=== PATIENT | female | born 1950 | race Caucasian/White ===

== ENCOUNTER 2018-03-08 12:26 | Inpatient (IN) ==
--- NOTE | 2018-03-07 23:20 | Discharge Summary ---
<Dori Cordon - Last Filed: 03/07/18 23:14> Date of Encounter: 03/07/18 - Discharge Diagnosis (1) Arthritis of left hip Priority: Primary Status: Acute (2) Status post total hip replacement, left Priority: Primary Status: Acute (3) HTN (hypertension) Priority: Secondary Status: Acute Qualifiers: Hypertension type: essential hypertension Qualified Code(s): I10 - Essential (primary) hypertension (4) DMII (diabetes mellitus, type 2) Priority: Secondary Status: Chronic Qualifiers: Diabetes mellitus nursing home insulin use: unspecified nursing home insulin use status Diabetes mellitus complication status: with unspecified complications Qualified Code(s): E11.8 - Type 2 diabetes mellitus with unspecified complications (5) History of TIA (transient ischemic attack) Priority: Secondary Status: Chronic - Hospital Course Hospital course: Ms. Weir is a 67 year old female - Time Spent with Patient Total time spent providing and/or coordinating discharge services: - Discharge Medications Home Medications: Aspirin Enteric Coated [Aspirin EC] 325 mg PO BID #20 tablet. 03/07/18 [Rx] Enoxaparin [Lovenox] 30 mg SQ Q12HR #20 syr 03/07/18 [Rx] OxyCODONE Immed Rel [Roxicodone 5 MG] 5 mg PO Q6HR PRN 7 Days #28 tablet [Rx] Atenolol/Chlorthalidone [Tenoretic 50 Tablet] 1 tab PO DAILY 03/08/18 [History] Atorvastatin [Lipitor] 40 mg PO HS 03/08/18 [History] Cholecalciferol (D-3) [Vitamin D] 1,000 unit PO DAILY 03/08/18 [History] Clopidogrel [Plavix] 75 mg PO DAILY 03/08/18 [History] Cyanocobalamin (Vitamin B-12) [Vitamin B-12] 1,000 mcg PO DAILY 03/08/18 [ History] Gabapentin [Neurontin] 100 mg PO HS 03/08/18 [History] Multivits,Ca,Minerals/Iron/FA [Women's Daily Caplet] 1 tab PO DAILY 03/08/18 [ History] glipiZIDE [Glucotrol] 5 mg PO DAILY 03/08/18 [History] Allergies/Adverse Reactions: 3 Allergy/AdvReac Type Severity Reaction Status Date / Time aspirin AdvReac Hives Verified 03/08/18 13:29 hydrocodone AdvReac See Verified 03/08/18 13:29 Comments Primary care physician: Kari Martinez, - Patient Status Disposition: Home Health Service Condition: Good - Discharge Instructions Follow Up With: Kari Martinez MD [Primary Care Provider] - <IsaelTavon Alexander - Last Filed: 03/10/18 06:16> Orders not resulted at time of discharge: Pending orders 03/08/18 00:01 XR hip complete LT [XR] Routine H/H [Hemoglobin and Hematocrit] [HEME] Routine Date of Encounter: 03/10/18 Time of Encounter: 06:15 - Discharge Diagnosis (1) Arthritis of left hip Priority: Primary Status: Chronic (2) Status post total hip replacement, left Priority: Primary Status: Acute (3) HTN (hypertension) Priority: Secondary Status: Chronic Qualifiers: Hypertension type: essential hypertension Qualified Code(s): I10 - Essential (primary) hypertension (4) DMII (diabetes mellitus, type 2) Priority: Secondary Status: Chronic Qualifiers: Diabetes mellitus nursing home insulin use: unspecified terminal gauger insulin use status Diabetes mellitus complication status: with unspecified complications Qualified Code(s): E11.8 - Type 2 diabetes mellitus with unspecified complications (5) History of TIA (transient ischemic attack) Priority: Secondary Status: Chronic (6) Acute blood loss anemia Priority: Primary Status: Acute - Hospital Course Hospital course: Ms. Weir is a 67 year old female Status post total hip replacement. Patient with acute blood loss anemia hemoglobin dropped to 8.1 transfuse 2 units . The patient had an uneventful postoperative course. They received antibiotics and physical therapy and were discharged in stable condition. There will follow -up in the office in 2 weeks. - Time Spent with Patient Total time spent providing and/or coordinating discharge services: Primary care physician: Kari Martinez, - Patient Status Functional capacity at discharge: uses cane/walker Overall status at discharge: patient is progressing back to baseline
--- NOTE | 2018-03-08 11:20 | Anesthesia Evaluation PreOp ---
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 03/07/18 [Rx] Enoxaparin [Lovenox] 30 mg SQ Q12HR #20 syr 03/07/18 [Rx] OxyCODONE Immed Rel [Roxicodone 5 MG] 5 mg PO Q6HR PRN 7 Days #28 tablet [Rx] Atenolol/Chlorthalidone [Tenoretic 50 Tablet] 1 tab PO DAILY 03/08/18 [History] Atorvastatin [Lipitor] 40 mg PO HS 03/08/18 [History] Cholecalciferol (D-3) [Vitamin D] 1,000 unit PO DAILY 03/08/18 [History] Clopidogrel [Plavix] 75 mg PO DAILY 03/08/18 [History] Cyanocobalamin (Vitamin B-12) [Vitamin B-12] 1,000 mcg PO DAILY 03/08/18 [ History] Gabapentin [Neurontin] 100 mg PO HS 03/08/18 [History] Multivits,Ca,Minerals/Iron/FA [Women's Daily Caplet] 1 tab PO DAILY 03/08/18 [ History] glipiZIDE [Glucotrol] 5 mg PO DAILY 03/08/18 [History] 3 Allergy/AdvReac Type Severity Reaction Status Date / Time aspirin AdvReac Hives Verified 03/08/18 13:29 hydrocodone AdvReac See Verified 03/08/18 13:29 Comments - Meds/Allergy Pre-op Review Medications Reviewed: Yes Allergies Reviewed: Yes Beta Blockers on Current Med List: Yes If Beta Blockers taken, Date/Time (Last Dose taken): 03/08/2018 at 0800 Anesthesia Results - Labs Laboratory Tests 03/01/18 03/01/18 03/01/18 11:56 11:56 11:56 WBC 6.2 Hgb 13.4 Hct 39.4 Plt Count 267 PT 11.0 INR 1.0 APTT 26.0 Sodium 135 L Potassium 3.4 L BUN 19 Creatinine 0.87 - Imaging EKG: report reviewed (03/01/2018 SINUS RHYTHM BORDERLINE LEFT AXIS DEVIATION MINIMAL VOLTAGE CRITERIA FOR LVH, CONSIDER NORMAL VARIANT NONSPECIFIC T-WAVE ABNORMALITY) Anesthesia Exam O2 Sat Height 1.57 m Height 1.57 m Weight 64.41 kg Weight 64.41 kg O2 Sat by Pulse Oximetry 98 Vital Signs Temp Pulse Resp BP Pulse Ox 98.2 F 66 18 131/72 98 03/08/18 12:57 03/08/18 12:57 03/08/18 12:57 03/08/18 12:57 03/08/18 12:57 Blood Glucose* 141 Height: 5'2'' Weight: 142 lbs NPO (# of Hours): 8 Pain Scale: 0 (at rest) Pain Scale Used: Numeric (1 - 10) - HEENT Pupil (Motor): EOMI Mallampati: III Teeth: Normal Denture Type: Lower: Partial Oral Opening: Greater than 3 - OUTDOOR ADVENTURE LEADER LOC: Oriented OUTDOOR ADVENTURE LEADER Motor: Normal RUE, Normal LUE, Normal RLE, Normal LLE, Normal Face OUTDOOR ADVENTURE LEADER Sensory: Normal: RUE, LUE, RLE, LLE, Face - Cardiac Rhythm: Regular Murmur: None - Pulmonary Breath Sounds: bilateral Clear Respiratory Effort: Symmetrical Anesthesia Assess/Plan ASA Score: 3 Modified Alana Scale for Level of Consciousness: Cooperative, oriented, and tranquil Anesthetic Plan: General, Regional Monitoring Plan: Standard Monitors Recovery Plan: PACU
[2018-03-08] MEDS ORDERED: Morphine Sulfate/PF 5mg/10mL Vial ONE (12:33)
--- NOTE | 2018-03-08 12:41 | History & Physical Report ---
Date of Encounter: 03/08/18 Time of Encounter: 12:40 24 Hour HP Update - Instructions Instructions: If the History and Physical is less than 30 days old and was completed prior to A.M. admission and or procedure and has NOT been updated on calendar day of procedure please complete this update prior to performing procedure. - Update Patient reports changes in Medical Condition: No Changes in examination, assessment, or condition: No Changes in Medication: No Preop tests/diagnostics Reviewed: Yes Surgery Remains Indicated: Yes Consent for Planned Operative Procedure(s) Verified: Yes - Pre-Operative Checklist Preoperative Checklist Indicated: No Prophylactic Antibiotic Ordered: Yes Is VTE Prophylaxis Indicated?: Yes
[2018-03-08] MEDS ORDERED: CeFAZolin Syr 2,000MG/20 ML 2,000 MG/20 ML SYRINGE IVPB ONE (13:31)
[2018-03-08] MEDS ORDERED: Ringers Solution, Lactated 1,000 ML IVC SCH (13:45)
[2018-03-08] MEDS ORDERED: ROPIVACAINE HCL/PF 0.5% 30 ML VIAL ONE (13:56)
--- NOTE | 2018-03-08 14:18 | Physician Discharge Referral ---
<SincereDori pacheco L - Last Filed: 03/08/18 14:17> Home Health/Hosp Referral Info Transfer to: Home Health Attending Provider: Provider in Charge Post Discharge: PCP - Diagnosis (1) Arthritis of left hip Priority: Primary Status: Chronic (2) Status post total hip replacement, left Priority: Primary Status: Acute (3) HTN (hypertension) Priority: Secondary Status: Chronic (4) DMII (diabetes mellitus, type 2) Priority: Secondary Status: Chronic (5) History of TIA (transient ischemic attack) Priority: Secondary Status: Chronic - Respiratory Orders None Smoking Cessation: Smoking cessation has been advised. For more information, call the [place] Tobacco Quit Line at 8-864-JAEK-NOW. - Diet/Nutrition Diet/Nutrition Orders: Regular - Activity Activity Orders: Up ad malena, Ambulate, Chair, Walker - Services Needed Following services are medically necessary services: Nursing, Home Health Aide, Physical Therapy, Occupational Therapy Home Care Orders: Rehab orders for total hip: Total Hip replacement Precautions Apply cold therapy 3-6x/day for 20 minutes at a time. Encourage ambulation throughout the day and incentive spirometer 10x/hour. Elevate affected extremity as tolerated. Brace: Wear hip abduction pillow when laying/sleeping Treatments: Opsite placed. Keep dressing intact until first follow up appointment. If > 50% saturated, notify office, remove dressing and place appropriate dressing back in place. Leave Zipline intact. Opsite dressing is water resistant, not water- proof. OK to shower, but do not get dressing wet. - Transfer Medications Home Medications: Aspirin Enteric Coated [Aspirin EC] 325 mg PO BID #20 tablet. 03/07/18 [Rx] Enoxaparin [Lovenox] 30 mg SQ Q12HR #20 syr 03/07/18 [Rx] OxyCODONE Immed Rel [Roxicodone 5 MG] 5 mg PO Q6HR PRN 7 Days #28 tablet [Rx] Atenolol/Chlorthalidone [Tenoretic 50 Tablet] 1 tab PO DAILY 03/08/18 [History] Atorvastatin [Lipitor] 40 mg PO HS 03/08/18 [History] Cholecalciferol (D-3) [Vitamin D] 1,000 unit PO DAILY 03/08/18 [History] Clopidogrel [Plavix] 75 mg PO DAILY 03/08/18 [History] Cyanocobalamin (Vitamin B-12) [Vitamin B-12] 1,000 mcg PO DAILY 03/08/18 [ History] Gabapentin [Neurontin] 100 mg PO HS 03/08/18 [History] Multivits,Ca,Minerals/Iron/FA [Women's Daily Caplet] 1 tab PO DAILY 03/08/18 [ History] glipiZIDE [Glucotrol] 5 mg PO DAILY 03/08/18 [History] Allergies/Adverse Reactions: 3 Allergy/AdvReac Type Severity Reaction Status Date / Time aspirin AdvReac Hives Verified 03/08/18 13:29 hydrocodone AdvReac See Verified 03/08/18 13:29 Comments Certification: Further, I certify that my clinical findings support that this patient is homebound (i.e. absences from home require considerable and taxing effort and are for medical reasons or mormon services or infrequently or short duration when for other reasons) because: Homebound Reason: Post-surgery restriction and or conditions limit ability to leave home Attestation: My signature below is to certify that this patient is under my care and that I, or nurse practitioner, or a physician's technician assistant working with me, has a face-to -face encounter with this patient. <Tavon Kirkland - Last Filed: 03/10/18 06:18> - Diagnosis (1) Arthritis of left hip Status: Chronic (2) Status post total hip replacement, left Status: Acute (3) HTN (hypertension) Status: Chronic (4) DMII (diabetes mellitus, type 2) Status: Chronic (5) History of TIA (transient ischemic attack) Status: Chronic (6) Acute blood loss anemia Status: Acute - Respiratory Orders Smoking Cessation: Smoking cessation has been advised. For more information, call the [place] Tobacco Quit Line at 0-161-EIEH-NOW. Certification: Further, I certify that my clinical findings support that this patient is homebound (i.e. absences from home require considerable and taxing effort and are for medical reasons or mormon services or infrequently or short duration when for other reasons) because: Attestation: My signature below is to certify that this patient is under my care and that I, or nurse practitioner, or a physician's technician assistant working with me, has a face-to -face encounter with this patient.
[2018-03-08] MEDS ORDERED: Ethanol\\Acetic Acid\\Na Ace\\Ben 1,000 ML IRRIG.SOLN IR ONE (15:02)
--- NOTE | 2018-03-08 15:11 | Anesthesia Procedures ---
Date of Encounter: 03/08/18 Time of Encounter: 14:42 Procedures: Anesthesia - Nerve Block Procedure Date: 03/08/18 Time: 14:42 Allergies/Adv Reactions: aspirin, hydrocodone Pre-op Diagnosis: Left hip arthritis Surgical Procedure: Left total hip arthroplasty Checklist: Correct Patient Identifier, Correct procedure, History checked Correct side: Left Blood Thinner: No Monitor Applied: EKG, BP, Pulse Oximetry Supplemental Oxygen via Nasal Cannula (L/min): 2 Sedation: Versed (mg): 2 Sedation: Fentanyl (mcg): 50 Indication: Post Op Analgesia Pre-op Neuro Deficits: No Block Type: Other (Fascia illiaca) Catheter placed: No Sterile Technique: Yes Ultrasound used: Yes Anatomy identified: Yes Visual spread of Local: Yes Neuro Stimulation: No Blood on Needle Aspiration: No Smooth Injection of Local: Yes Pain with Injection of Local: No Prep: Chlorhexadine Needle: 22 x 50 mm Stimuplex Local: Ropivacaine (0.25% 60ml) Volume (cc): 60 Number of Attempts: 1 Complications: None/effective block Vitals: Vital Signs Temperature 98.2 F 03/08/18 12:57 Pulse Rate 66 03/08/18 12:57 Respiratory Rate 18 03/08/18 12:57 Blood Pressure 131/72 03/08/18 12:57 O2 Sat by Pulse Oximetry 98 03/08/18 12:57 Temperature 98.2 F 03/08/18 12:57 Pulse Rate 74 03/08/18 14:54 Respiratory Rate 18 03/08/18 12:57 Blood Pressure 146/83 03/08/18 14:54 O2 Sat by Pulse Oximetry 100 03/08/18 14:54
--- NOTE | 2018-03-08 15:28 | Anesthesia Procedures ---
Date of Encounter: 03/08/18 Time of Encounter: 15:15 Procedures: Anesthesia - Nerve Block Procedure Date: 03/08/18 Time: 15:15 Allergies/Adv Reactions: aspirin, hydrocodone Pre-op Diagnosis: L hip arthritis Surgical Procedure: Robotic Assisted L FLORECITA Checklist: Correct Patient Identifier, Correct procedure, History checked Correct side: Left Blood Thinner: No Monitor Applied: EKG, BP, Pulse Oximetry Supplemental Oxygen via Nasal Cannula (L/min): 3 Sedation: Versed (mg): 2 Sedation: Fentanyl (mcg): 50 Indication: Post Op Analgesia (requested by Dr. Kirkland) Pre-op Neuro Deficits: No Block Type: Other (fascia iliaca n. block) Catheter placed: No Sterile Technique: Yes Ultrasound used: Yes Anatomy identified: Yes Visual spread of Local: Yes Neuro Stimulation: No Blood on Needle Aspiration: No Smooth Injection of Local: Yes Pain with Injection of Local: No Prep: Chlorhexadine Needle: 22 x 50 mm Stimuplex Local: Ropivacaine (0.25%, 60mL + 8mg dexamethasone) Number of Attempts: 1 Complications: None/effective block Vitals: see "holding vital signs" notes
[2018-03-08] MEDS ORDERED: Acetaminophen IV 1,000 MG/100 ML INFUS..BTL ONE (15:47)
[2018-03-08] MEDS ORDERED: *HR* FentaNYL (PF) 100 MCG/2 ML VIAL ONE (16:06)
[2018-03-08] MEDS ORDERED: *HR* Propofol 200 MG/20 ML VIAL IVP ONE (16:06)
[2018-03-08] MEDS ORDERED: *HR* Succinylcholine 200 MG/10 ML VIAL IVP ONE (16:06)
[2018-03-08] MEDS ORDERED: Lidocaine -MPF 2% 2 ML VIAL ONE (16:06)
[2018-03-08] MEDS ORDERED: *HR* Midazolam HCl 2 MG/2 ML VIAL ONE (16:06)
[2018-03-08] MEDS ORDERED: *HR* HYDROmorphone 2 MG TABLET PO PRN (16:07)
[2018-03-08] MEDS ORDERED: *HR* OxyCODONE Immed Rel 5 MG TABLET PO PRN ×2 (16:07→18:17)
[2018-03-08] MEDS ORDERED: Ondansetron 4 MG/2 ML VIAL ONE (16:09)
[2018-03-08] MEDS ORDERED: *HR* PHENYLEPHRINE 1,000 MCG/10 ML SYRINGE IVP ONE (16:10)
--- NOTE | 2018-03-08 16:25 | Orthopedic Operative Note ---
Date of procedure: 03/08/18 Pre-op diagnosis: Left hip arthritis Post-op diagnosis: same Procedure: Procedure: Left Total Hip Replacment robotic-assisted Estimated blood loss: 200 cc Hardware: Metal and polyethylene replacement. Arabella DM Cup: 54 cup Femoral size 9 stem Head: -4 head with Rakel Procedural Notes: Grade 4 arthritic changes femoral head acetabular socket, procedure performed with robotic assistance. Operative leg 1 mm short as measured by preoperative CT scan Operative procedure: The patient was brought to the operating room and placed on the operating room table. After general anesthesia was administered the patient was placed in the lateral decubitus position with the operative leg up. All pressure points were padded appropriately and the head was stabilized in the neutral position. The operative extremity was prepped and draped in the sterile surgical fashion patient received IV antibiotic prior to skin incision. 3 Steinmann pins were placed in the iliac crest 3 cm proximal to the anterior superior iliac spine this was for the robotic-assisted sensor. This was done through a small 2 cm incision. A standard posterior approach is made to the operative hip, the incision was made through the skin and subcutaneous tissue hemostasis was obtained with Bovie cautery. Using careful sharp dissection the fascia was identified and incised exposing the external rotators. The femoral checkpoint was placed leg length was measured at this time utilizing robotic assistance. The external rotators were released off the greater trochanter and tagged with # 2 FiberWire suture. The capsule was T'd open and the hip was brought into internal rotation. Patient noted to have grade 4 arthritic changes femoral head. The femoral neck cut was made at the appropriate level roughly 12 mm proximal to the lesser trochanter aced on preoperative templating. An anterior capsulotomy was performed for the anterior retractor. Soft tissues removed from the acetabulum. Patient noted to have grade 4 arthritic changes acetabulum. The acetabulum checkpoint was placed confirmed. The acetabulum was then mapped with robotic assistance. Based on the preoperative plan the acetabulum was reamed in one step with a 53 reamer. The 54 acetabulum was impacted with robotic assistance and 40 degrees of abduction and 20 degrees of anteversion. The hip was brought back in to internal rotation and prepared with the box truck owner operator followed by the canal finder followed by the reaming process to a size 9/ 10 broaching process in 20 degrees anteversion. It was broached up to the appropriate size 9. Trial reduction revealed leg lengths close to normal. The femoral implant was impacted in place in 20 degrees of anteversion. Trial reduction found the hip to be stable with -4 head and Rakel. The trials were removed and the real implants were impacted in place. The hip was reduced, patient had robotic confirmed leg length of 5 mm longer than the contralateral side. The hip had excellent stability with forward flexion to 90 degrees adduction of 30 degrees and internal rotation of 60 degrees. The hip had no shuck. The hips after 2 minutes with a antibacterial solution. It was irrigated out with 2 L of pulse irrigation. The checkpoints were removed, Steinmann pins were removed. The hip was closed by the PA. The deep tissue was irrigated and closed deep with #1 PDS suture superficially with 0 PDS suture and skin was closed with Dermabond and zip tie. The patient was placed in a sterile dressing and abduction pillow. The patient was extubated and transferred to the recovery room in stable condition. Anesthesia: GETA Surgeon: Tavon Kirkland Was there an physiotherapy assistant present: Yes Educational Fundraising Director: Dori Cordon Estimated blood loss (cc): 200 Condition: stable Disposition: PACU
[2018-03-08] MEDS ORDERED: Ketorolac 30 MG/ML VIAL ONE (16:45)
[2018-03-08 17:24] LABS: Hematocrit 39.7 % (35.3-44.9); Hemoglobin 13.3 g/dL (11.5-15.4)
--- NOTE | 2018-03-08 17:59 | Anesthesia Evaluation Post Op ---
Date of Encounter: 03/08/18 Time of Encounter: 17:58 - Vital Signs Vital Signs: Vital Signs/O2 Sat, Most Current Temp Pulse Resp BP Pulse Ox 97.1 F L 69 14 125/68 97 03/08/18 17:57 03/08/18 17:57 03/08/18 17:57 03/08/18 17:57 03/08/18 17:57 - Lungs Lungs: Clear Ascult./Percussion - Airway Airway: Non-obstructed - Cardiovascular Regular Rate - Mental Status Mental Status: Alert & Oriented, Answers Appropriately - Pain Pain Scale: 0 Pain Scale used: HusseinJenna (Faces) - Nausea Vomiting Nausea Vomiting: Not Present - Hydration Hydration: Tolerates oral liquids, Has not voided - Discharge PostOp Status: Transfer Patient to floor
[2018-03-08] MEDS ORDERED: *HR* Enoxaparin 30 MG/0.3 ML SYRINGE SQ SCH (18:00)
[2018-03-08] MEDS ORDERED: *HR* OxyCODONE/APAP 5/325 TABLET PO PRN (18:17)
[2018-03-08] MEDS ORDERED: Naloxone 0.4 MG/ML INJ IVP PRN (18:17)
[2018-03-08] MEDS ORDERED: D5% in Water 1,000 ML IVC PRN (18:17)
[2018-03-08] MEDS ORDERED: Sennosides 8.6 MG TABLET PO PRN (18:17)
[2018-03-08] MEDS ORDERED: MOM Conc 10 ML UD.LIQ PO PRN (18:17)
[2018-03-08] MEDS ORDERED: Temazepam 15 MG CAPSULE PO PRN (18:17)
[2018-03-08] MEDS ORDERED: Dextrose Gel 15 GM/37.5 ML TUBE PO PRN ×2 (18:17)
[2018-03-08] MEDS ORDERED: *HR* Dextrose 50 % in Water (Syg) 50 ML SYRINGE IVP PRN (18:17)
[2018-03-08] MEDS: Gabapentin 100 MG CAPSULE PO SCH (22:49)
[2018-03-08] MEDS: Ascorbic Acid 500 MG TABLET PO SCH (22:49)
[2018-03-08] MEDS: Insulin LISPRO 300 UNITS/3 ML VIAL SQ SCH ×2 (22:55→22:57)
[2018-03-08] MEDS: Ringers Solution, Lactated 1,000 ML IVC SCH (23:19)
[2018-03-09] MEDS: traMADol 50 MG TABLET PO PRN ×2 (00:38→15:34)
[2018-03-09] MEDS: Ondansetron 4 MG/2 ML VIAL IVP PRN ×2 (02:10→13:26)
[2018-03-09 02:11] LABS: Hematocrit 33.9 % (35.3-44.9)
[2018-03-09 02:12] LABS: Hemoglobin 11.4 g/dL (11.5-15.4)
[2018-03-09] MEDS ORDERED: 0.9 % Sodium Chloride 500 ML IVC ONE ×2 (02:42→13:04)
[2018-03-09 05:27] LABS: BUN/Creatinine Ratio 27 (6-26); Blood Urea Nitrogen 22 mg/dL (8-23); Calcium 8.4 mg/dL (8.6-10.3); Carbon Dioxide 22 mEq/L (23-29); Chloride 103 mEq/L (98-107); Glucose 220 mg/dL (70-105); Osmolality,Calculated 290 (280-300); Potassium 3.5 mEq/L (3.5-5.1); Sodium 135 mEq/L (136-145); eGFR For African Americans > 60 (> 60); eGFR For Non-African Americans > 60 (> 60)
[2018-03-09] MEDS: *HR* Enoxaparin 30 MG/0.3 ML SYRINGE SQ SCH ×2 (06:10→16:52)
--- NOTE | 2018-03-09 07:01 | Orthopedics Progress Note ---
Date of Encounter: 03/09/18 Time of Encounter: 07:01 - Assessment and Plan (1) Arthritis of left hip Current Visit: No Status: Chronic (2) Status post total hip replacement, left Current Visit: No Status: Acute (3) HTN (hypertension) Current Visit: No Status: Chronic Qualifiers: Hypertension type: essential hypertension Qualified Code(s): I10 - Essential (primary) hypertension (4) DMII (diabetes mellitus, type 2) Current Visit: No Status: Chronic Qualifiers: Diabetes mellitus termite control service representative insulin use: unspecified intermediate insulin use status Diabetes mellitus complication status: with unspecified complications Qualified Code(s): E11.8 - Type 2 diabetes mellitus with unspecified complications (5) History of TIA (transient ischemic attack) Current Visit: No Status: Chronic Subjective Interval history: Patient was seen this morning episode of hypotension overnight responded to bolus and half dose of Narcan. Afebrile vital signs stable. Operative extremity: Neurovascularly intact Dressing clean dry and intact Calves nontender Assessment and plan: Continue with postoperative care hematocrit 33.9. Objective Vital signs: Vital Signs Temp Pulse Resp BP Pulse Ox 03/09/18 06:32 97.9 F 90 16 102/69 98 03/09/18 04:15 96.0 F L 83 15 102/69 95 03/08/18 23:30 98.7 F 94 16 102/86 96 03/08/18 23:10 98.6 F 82 16 102/69 100 03/08/18 22:30 98.2 F 82 16 98/80 96 03/08/18 19:30 98.5 F 74 16 110/82 95 03/08/18 18:59 97.5 F L 70 16 111/66 100 03/08/18 18:25 97.6 F 70 123/84 100 03/08/18 17:57 97.1 F L 69 14 125/68 97 03/08/18 17:47 72 18 112/74 100 03/08/18 17:37 72 16 107/69 95 03/08/18 17:27 98.3 F 69 12 126/76 99 03/08/18 17:17 70 12 140/85 100 03/08/18 17:07 69 16 145/74 100 03/08/18 16:57 97.9 F 75 16 155/86 100 03/08/18 15:23 72 128/70 100 06/25/18 15:19 69 117/65 100 03/08/18 14:54 74 146/83 100 03/08/18 12:57 98.2 F 66 18 131/72 98 Intake and Output 03/08/18 03/08/18 03/09/18 15:59 23:59 07:59 Intake Total 20 / 20 Output Total 325 / 325 Balance 20 / -325 / -325 Intake: IV Fluids 20 / 20 Ancef Syringe 2,000 MG/20 ML 2, 20 / 20 000 mg In 20 ml @ 200 mls/hr IVPB PREOP ONE Rx#:[id number] Output: Urine 125 / 125 Estimated Blood Loss 200 / 200 Other: # Voids 1 Weight 64.41 kg Blood Glucose* 141 213 - Labs CBC & BMP: 03/09/18 01:25 03/09/18 03:54 Labs: Abnormal lab results Hgb 11.4 g/dL (11.5-15.4) L D 03/09/18 01:25 Hct 33.9 % (35.3-44.9) L 03/09/18 01:25 Sodium 135 mEq/L (136-145) L 03/09/18 03:54 Carbon Dioxide 22 mEq/L (23-29) L 03/09/18 03:54 BUN/Creatinine Ratio 27 (6-26) H 03/09/18 03:54 Glucose 220 mg/dL (70-105) H 03/09/18 03:54 POC Glucose 141 mg/dL (70-99) H 03/08/18 12:48 Calcium 8.4 mg/dL (8.6-10.3) L 03/09/18 03:54 - VTE Documentation of Mechanical Device: Venous foot pump, device Consult Discharge Plan - Plan Referrals: Kari Martinez MD [Primary Care Provider] -
[2018-03-09] MEDS: Insulin LISPRO 300 UNITS/3 ML VIAL SQ SCH ×4 (08:21→20:10)
[2018-03-09] MEDS: Cholecalciferol (D-3) 1,000 UNIT TABLET PO SCH (08:22)
[2018-03-09] MEDS: Multivit/Ca/Min/Fe/FA 1 TAB TABLET PO SCH (08:22)
[2018-03-09] MEDS: *HR* GlipiZIDE 5 MG TABLET PO SCH (08:22)
[2018-03-09] MEDS: Ascorbic Acid 500 MG TABLET PO SCH ×2 (08:22→16:38)
[2018-03-09] MEDS: Cyanocobalamin (B-12) 1,000 MCG TABLET PO SCH (08:23)
[2018-03-09] MEDS ORDERED: IRON PO SCH (09:00)
[2018-03-09] MEDS ORDERED: MULTIVITS CA MINERALS PO SCH (09:00)
[2018-03-09] MEDS ORDERED: [UNRECOGNIZED DRUG - OTHER] PO SCH (09:00)
[2018-03-09] MEDS: Ringers Solution, Lactated 1,000 ML IVC SCH (12:00)
[2018-03-09] MEDS ORDERED: 0.9 % Sodium Chloride 500 ML ONE (13:03)
[2018-03-09] MEDS: Gabapentin 100 MG CAPSULE PO SCH (19:25)
--- NOTE | 2018-03-09 21:40 | Event Note ---
Date of Encounter: 03/09/18 Time of Encounter: 21:39 PCR - POD#1 - THR . Patient seen at bedside. Vasovagel episode overnight, improved BP today. Patient was seen this morning doing well, without complaints Afebrile, vital signs stable. Labs reviewed. H/H - stable, asymptomatic. Monitor renal function - 2 bolus given Pain control: adequate Participating in PT. All questions and concerns addressed. Educated on use of incentive spirometer. Encouraged ambulation and proper hydration. Patient educated on post-operative restrictions and post-operative care. Assessment and plan: Continue with postoperative care Discharge plan: Home, discharge tomorrow. .
[2018-03-10] MEDS: traMADol 50 MG TABLET PO PRN ×2 (00:28→08:01)
[2018-03-10 01:39] LABS: Hematocrit 24.6 % (35.3-44.9)
[2018-03-10 01:43] LABS: Hemoglobin 8.1 g/dL (11.5-15.4)
[2018-03-10 01:56] LABS: BUN/Creatinine Ratio 31 (6-26); Blood Urea Nitrogen 25 mg/dL (8-23); Calcium 8.8 mg/dL (8.6-10.3); Carbon Dioxide 25 mEq/L (23-29); Chloride 104 mEq/L (98-107); Glucose 133 mg/dL (70-105); Osmolality,Calculated 288 (280-300); Potassium 3.6 mEq/L (3.5-5.1); Sodium 136 mEq/L (136-145); eGFR For African Americans > 60 (> 60); eGFR For Non-African Americans > 60 (> 60)
[2018-03-10] MEDS: *HR* Enoxaparin 30 MG/0.3 ML SYRINGE SQ SCH (05:20)
[2018-03-10] MEDS ORDERED: Furosemide 20 MG/2 ML VIAL IVP ONE (06:11)
--- NOTE | 2018-03-10 06:17 | Orthopedics Progress Note ---
Date of Encounter: 03/10/18 Time of Encounter: 06:17 - Assessment and Plan (1) Arthritis of left hip Current Visit: No Status: Chronic (2) Status post total hip replacement, left Current Visit: No Status: Acute (3) HTN (hypertension) Current Visit: No Status: Chronic Qualifiers: Hypertension type: essential hypertension Qualified Code(s): I10 - Essential (primary) hypertension (4) DMII (diabetes mellitus, type 2) Current Visit: No Status: Chronic Qualifiers: Diabetes mellitus terminal supervisor insulin use: unspecified mcc insulin use status Diabetes mellitus complication status: with unspecified complications Qualified Code(s): E11.8 - Type 2 diabetes mellitus with unspecified complications (5) History of TIA (transient ischemic attack) Current Visit: No Status: Chronic (6) Acute blood loss anemia Current Visit: Yes Status: Acute Subjective Interval history: Patient was seen this morning overall doing well Afebrile vital signs stable. Operative extremity: Neurovascularly intact Dressing clean dry and intact Calves nontender Assessment and plan: Continue with postoperative care hematocrit 24.6 transfuse 2 units discharged today Objective Vital signs: Vital Signs Temp Pulse Resp BP Pulse Ox 03/10/18 04:04 98.9 F 105 16 109/69 92 03/10/18 00:21 99.2 F 111 16 109/67 96 03/09/18 19:45 98.5 F 112 14 104/64 93 03/09/18 15:38 97.8 F 104 16 99/65 95 03/09/18 11:15 98.7 F 97 16 96/55 94 03/09/18 06:32 97.9 F 90 16 102/69 98 Intake and Output 03/09/18 03/09/18 03/10/18 15:59 23:59 07:59 Intake Total 1840 / 1840 290 / 290 200 / 200 Output Total 800 / 800 400 / 400 Balance 1840 / 1840 -510 / -510 -200 / -200 Intake: IV Fluids 1100 / 1100 Lactated Ringers 1,000 ML @ 75 1000 / 1000 mls/hr IVC .[id number] Rx#: [id number] Ancef 2,000 MG In 0.9 % Sodium 100 / 100 Chloride 100 ML @ 200 mls/hr IVPB Q8HR MAXX Rx#:[id number] Oral 740 / 740 290 / 290 200 / 200 Output: Urine 800 / 800 400 / 400 Other: Meal Lunch Dinner Percent of Meal Consumed 35% 15% # Voids 1 1 Blood Glucose* 169 155 - Labs CBC & BMP: 03/10/18 01:02 03/10/18 01:02 Labs: Abnormal lab results Hgb 8.1 g/dL (11.5-15.4) L D 03/10/18 01:02 Hct 24.6 % (35.3-44.9) L 03/10/18 01:02 BUN 25 mg/dL (8-23) H 03/10/18 01:02 BUN/Creatinine Ratio 31 (6-26) H 03/10/18 01:02 Glucose 133 mg/dL (70-105) H 03/10/18 01:02 POC Glucose 155 mg/dL (70-99) H 03/09/18 19:52 - VTE Documentation of Mechanical Device: Venous foot pump, device Consult Discharge Plan - Plan Referrals: Kari Martinez MD [Primary Care Provider] -
[2018-03-10] MEDS: *HR* GlipiZIDE 5 MG TABLET PO SCH (07:58)
[2018-03-10] MEDS: Cholecalciferol (D-3) 1,000 UNIT TABLET PO SCH (07:58)
[2018-03-10] MEDS: Cyanocobalamin (B-12) 1,000 MCG TABLET PO SCH (07:58)
[2018-03-10] MEDS: Ascorbic Acid 500 MG TABLET PO SCH (07:58)
[2018-03-10] MEDS: Multivit/Ca/Min/Fe/FA 1 TAB TABLET PO SCH (07:58)
[2018-03-10] MEDS: Insulin LISPRO 300 UNITS/3 ML VIAL SQ SCH ×2 (07:59→11:35)
[2018-03-10] MEDS ORDERED: 0.9 % Sodium Chloride 250 ML ONE ×2 (09:17→12:03)
--- NOTE | 2018-03-10 14:37 | Event Note ---
Date of Encounter: 03/10/18 Time of Encounter: 14:35 PCR - POD#2 - L THR . Patient seen at bedside. Vasovagel episode overnight 03/08, improved BP today. Patient doing well, without complaints Afebrile, vital signs stable. Hypotension resolving with blood administration Labs reviewed. H/H - stable, asymptomatic. Monitor renal function - 2 bolus given 03/09; 2 units PRBCS given today 03/10 Pain control: adequate Participating in PT. All questions and concerns addressed. Educated on use of incentive spirometer. Encouraged ambulation and proper hydration. Patient educated on post-operative restrictions and post-operative care. Assessment and plan: Continue with postoperative care Discharge plan: Home today after transfusion
[2018-03-10 15:19] VITALS: BP 115/76
== END 2018-03-10 16:14 | disposition home health service (06) | DRG 470 ==
LOC: SAMDAY 12:26 → 3NENU 19:25
PROVIDERS: ADMIT Orthopaedic Surgery; ATTEND Orthopaedic Surgery